=== PATIENT | female | born 1995 | race Caucasian/White ===

== ENCOUNTER 2017-05-17 05:15 | Inpatient (IN) | payer OTHER ==
[~2017-05-17] VITALS: Ht 162.6 cm; Wt 83.6 kg
[2017-05-17 05:34] VITALS: Ht 162.6 cm; Wt 83.6 kg
[2017-05-17 05:38] VITALS: BP 131/74; PULSE 72
[2017-05-17] MEDS ORDERED: METHYLERGONOVINE 0.2 MG INJ IM PRN ×2 (06:00→13:30)
[2017-05-17] MEDS ORDERED: CARBOPROST 250 MCG INJ IM PRN ×2 (06:00→13:30)
[2017-05-17] MEDS ORDERED: MISOPROSTOL 200 MCG TAB PR PRN ×2 (06:00→13:30)
[2017-05-17] MEDS ORDERED: OXYTOCIN 30 UNITS/LR 500 ML IV PRN ×2 (06:00→13:30)
[2017-05-17] MEDS ORDERED: CEFAZOLIN 2 GM/50 ML (PMX) 50 ML IVPB ONE (06:07)
[2017-05-17 06:08] LABS: BASOPHILS % 0.3 % (0.0-2.0); EOSINOPHILS # 0.1 10^3/ul (0.0-0.5); HEMATOCRIT 33.3 % (37.0-47.0); HEMOGLOBIN 11.1 g/dl (12.0-16.0); LYMPHOCYTES # 2.4 10^3/ul (0.8-2.9); LYMPHOCYTES % 34.8 % (15.0-51.0); MEAN CORPUSCULAR HEMOGLOBIN 25.3 pg (29.0-33.0); MEAN CORPUSCULAR HGB CONC 33.3 g/dl (32.0-37.0); MEAN PLATELET VOLUME 12.1 fl (7.4-10.4); MONOCYTE # 0.6 10^3/ul (0.3-0.9); MONOCYTES % 8.4 % (0.0-11.0); NEUTROPHIL # 3.7 10^3/ul (1.6-7.5); NEUTROPHILS % 54.9 % (39.0-77.0); PLATELET COUNT 282 10^3/UL (140-415); RED BLOOD COUNT 4.38 10^6/ul (4.20-5.40); RED CELL DISTRIBUTION WIDTH 14.5 % (11.5-14.5); WHITE BLOOD COUNT 6.8 10^3/ul (4.8-10.8)
[2017-05-17] MEDS: LACTATED RINGER'S 1,000 ML IV SCH ×2 (06:10→07:25)
[2017-05-17 06:38] LABS: INR 0.83; PROTIME 11.5 Sec (11.9-14.9); PT RATIO 0.9
[2017-05-17 06:39] LABS: PARTIAL THROMBOPLASTIN TIME 26.4 Sec (25.0-35.0)
[2017-05-17] MEDS ORDERED: OXYTOCIN 30 UNITS/LR 500 ML BAG IV ONE (07:00)
[2017-05-17 07:09] LABS: BARBITURATES Negative (NEGATIVE); BENZODIAZEPINES Negative (NEGATIVE); CANNABINOIDS Negative (NEGATIVE); COCAINE Negative (NEGATIVE); OPIATES Negative (NEGATIVE)
[2017-05-17] MEDS ORDERED: OXYTOCIN 10 UNIT INJ ONE (07:57)
[2017-05-17] MEDS ORDERED: PHENYLephrine (100 MCG/ML) 5ML SYG ONE ×3 (07:57→08:55)
[2017-05-17] MEDS ORDERED: ONDANSETRON 4 MG INJ ONE ×2 (07:57→08:45)
[2017-05-17] MEDS ORDERED: morphine SULFATE/PF (10 MG/10 ML) INJ ONE (07:57)
[2017-05-17] MEDS: CEFAZOLIN 2 GM/50 ML (PMX) 50 ML IV SCH ×2 (08:12→09:39)
[2017-05-17] MEDS ORDERED: METOCLOPRAMIDE 10 MG INJ ONE (08:38)
[2017-05-17] MEDS ORDERED: MIDAZOLAM 1 MG/ML 2 ML INJ ONE (08:45)
[2017-05-17] MEDS: OXYTOCIN 30 UNITS/LR 500 ML IV SCH ×2 (09:41→11:32)
--- NOTE | 2017-05-17 09:49 | HP ---
Date/Time of Note Date/Time of Note DATE: 05/17/17 TIME: 09:42 OB - History Hx of Present Free Text/Dictation 21 y.o primigravida with twin gestation at 37w for Primary section. 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 Blood Type: A+ Rubella: immune RPR/VDRL: Negative GBS Status: Unknown HBsAG: Negative OB Admission Exam Vital Signs Vital Signs Vital Signs Date Time Temp Pulse Resp B/P Pulse Ox O2 Delivery O2 Flow Rate FiO2 05/17/17 05:43 100 05/17/17 05:38 98.4 72 131/74 Room Air Physical Exam HEENT: WNL Heart: Rhythm Normal Lungs: Clear, Equal Abdomen: WNL Extremities: Normal Reflexes: Normal Cervical Dilatation: other Effacement: Other Station: Other Membranes: Intact Amniotic Fluid: Unevaluable Heart Rate: 140's Accelerations: Accelerations Present Decelerations: No Decelerations Varibility: Moderate Contractions on Admission: None Last 72 hours Lab Results CBC & BMP 05/17/17 05:50 OB Assessment/Plan Reason for admission: section Other Assessment: IUP 37w twin gestation Plan: Section PIERRE DYER MD May 17, 2017 09:48
[2017-05-17] MEDS ORDERED: ONDANSETRON 4 MG INJ IV PRN ×2 (10:00→13:30)
[2017-05-17] MEDS ORDERED: HYDROmorphONE 0.5 MG/0.5 ML SYG IV PRN ×2 (10:00)
[2017-05-17] MEDS ORDERED: NALOXONE (0.4 MG/ML) INJ IV PRN (10:00)
[2017-05-17] MEDS ORDERED: DIPHENHYDRAMINE 50 MG INJ IV PRN ×2 (10:00→13:30)
[2017-05-17] MEDS ORDERED: KETOROLAC 30 MG INJ IV PRN (10:00)
[2017-05-17] MEDS ORDERED: PREN-17 PO (11:12)
[2017-05-17 12:50] VITALS: BP 107/61; PULSE 57; RESP 18
[2017-05-17] MEDS ORDERED: OXYCODONE/ACETAMINOPHEN (5/325) TAB PO PRN (13:30)
[2017-05-17] MEDS ORDERED: LANOLIN 7 GM TUBE TOP PRN (13:30)
[2017-05-17] MEDS ORDERED: ZOLPIDEM 5 MG TAB PO PRN (13:30)
[2017-05-17 15:45] VITALS: BP 117/66; RESP 16
[2017-05-17] MEDS: CEFAZOLIN 2 GM/50 ML (PMX) 50 ML IVPB SCH ×2 (16:12→21:58)
[2017-05-17 19:30] VITALS: BP 127/76; PULSE 57; RESP 18
[2017-05-17] MEDS: SENNA/DOCUSATE NA (8.6MG/50MG) TAB PO SCH (21:38)
[2017-05-18 00:35] VITALS: BP 110/59; PULSE 69; RESP 18
[2017-05-18 03:55] VITALS: BP 107/56; PULSE 62; RESP 18
[2017-05-18] MEDS: CEFAZOLIN 2 GM/50 ML (PMX) 50 ML IVPB SCH ×3 (05:57→21:30)
--- NOTE | 2017-05-18 06:29 | OPR ---
DATE OF OPERATION: 05/17/2017 PREOPERATIVE DIAGNOSIS: at 37 weeks with a twin gestation, vertex-vertex. POSTOPERATIVE DIAGNOSIS: at 37 weeks with a twin gestation, vertex-vertex. PROCEDURE: Primary section, low transverse. ANESTHESIA: Spinal. ANESTHESIOLOGIST: Dr. Lees. SURGEON: Fei Gutierres MD SPACE AND MISSILE OPERATIONS SPACELIFT: ESTIMATED BLOOD LOSS: Approximately 600 mL. PROCEDURE: Under proper induction of spinal anesthesia, the patient was placed in the frog position . Johnson catheter was introduced into the bladder under sterile condition and repositioned to supine . Abdominal wall was prepped and draped in usual aseptic manner. A transverse incision was made ap proximately 2 fingers above the pubic rami. Incision was carried down through the subcutaneous tiss ue to the anterior rectus fascia, which was incised transversely in length of the incision. Fascial flap was created by blunt and sharp dissection of tendinous attachment, and 2 rectus muscles were s plit in midline and peritoneal cavity was entered. The low portion of the uterus was exposed. A tr ansverse incision was made above the uterovesical reflection. This incision was carried down to the amniotic membrane, which was ruptured, revealed clear amniotic fluid, and normal male was anjum rn from the occiput anterior position. Mouth and nose were cleaned. Mouth and nose were cleaned an d cord was delayed clamped, and handed to the respiratory care personnel for further care. Then, se cond sac was ruptured and same, and normal female infant was born from left occiput anterior positio n. Mouth and nose were cleaned, and cord was delayed clamped and cut and handed to the respiratory care personnel for further care. Cord blood was obtained from each cord and the placenta was remove d manually, which was sent to pathology. Uterus was exteriorized. Cavity was completely explored, and the uterine incision was closed using 0 chromic catgut in continuous manner and second layer als o using 0 chromic catgut in continuous manner including uterine serosa. No bleeder was noted. Abdo marizol cavity was irrigated. The uterus already relocated. There was a filmy adhesion from the omen ever on the posterior aspect of the uterus which was released, and a piece of Interceed was placed af ter adequate hemostasis was secured. Then Surgicel was laid on the uterine incision after check the incision, which was intact, and all the blood clots were removed and the irrigation was done. Spon ge count correct and parietal peritoneum was closed using 0 chromic catgut in continuous manner, mus sam closed with 0 chromic catgut in continuous manner. Fascia closed with #1 Vicryl in continuous m jaz in 2 segments. Subcutaneous tissue irrigated with water. This layer was approximated with a 2-0 plain gut, and the skin closed with a 3-0 Monocryl in subcuticular manner. Steri-Strip applied. Pressure dressing applied. Estimated blood loss approximately 600 mL. The patient withstood the procedure well and was sent to recovery room in stable condition. Dictated By: FEI BLACKBURN/MARIELA Conf#: [id number] DID#: [id number]
[2017-05-18 07:51] VITALS: BP 114/68; RESP 18
[2017-05-18 09:21] LABS: BASOPHILS % 0.2 % (0.0-2.0); EOSINOPHILS % 0.1 % (0.0-7.0); HEMATOCRIT 27.1 % (37.0-47.0); HEMOGLOBIN 8.7 g/dl (12.0-16.0); LYMPHOCYTES # 1.7 10^3/ul (0.8-2.9); MEAN CORPUSCULAR HEMOGLOBIN 24.9 pg (29.0-33.0); MEAN CORPUSCULAR HGB CONC 32.1 g/dl (32.0-37.0); MEAN CORPUSCULAR VOLUME 77.7 fl (82.0-101.0); MEAN PLATELET VOLUME 11.9 fl (7.4-10.4); MONOCYTE # 0.6 10^3/ul (0.3-0.9); MONOCYTES % 6.3 % (0.0-11.0); PLATELET COUNT 227 10^3/UL (140-415); RED BLOOD COUNT 3.49 10^6/ul (4.20-5.40); RED CELL DISTRIBUTION WIDTH 14.6 % (11.5-14.5); WHITE BLOOD COUNT 9.3 10^3/ul (4.8-10.8)
[2017-05-18] MEDS: SENNA/DOCUSATE NA (8.6MG/50MG) TAB PO SCH ×2 (09:35→21:30)
[2017-05-18] MEDS: OXYCODONE/ACETAMINOPHEN (5/325) TAB PO PRN (10:14)
--- NOTE | 2017-05-18 11:47 | PN ---
Date/Time of Note Date/Time of Note DATE: 05/18/17 TIME: 11:41 OB Subjective Subjective Subjective no c/o no flatus yet OB Objective Objective Objective vss a febrile abdomen soft wound dry lochia min ext neg OB Assessment/Plan Other Assessment: stable pod #1 Plan: Expectant Management Other plan: as ordered PIERRE DYER MD May 18, 2017 11:47
[2017-05-18] MEDS: IBUPROFEN 600 MG TAB PO SCH ×3 (12:27→23:32)
[2017-05-18 15:53] VITALS: RESP 16
[2017-05-18 16:00] VITALS: BP 104/66; RESP 18
[2017-05-18 20:29] VITALS: BP 119/82; PULSE 66; RESP 18
[2017-05-19 04:00] VITALS: BP 98/64; PULSE 67; RESP 18
[2017-05-19] MEDS: CEFAZOLIN 2 GM/50 ML (PMX) 50 ML IVPB SCH ×3 (05:33→21:38)
[2017-05-19] MEDS: IBUPROFEN 600 MG TAB PO SCH ×3 (05:33→17:38)
[2017-05-19 08:49] VITALS: BP 115/75; PULSE 59; RESP 18
[2017-05-19] MEDS: SENNA/DOCUSATE NA (8.6MG/50MG) TAB PO SCH ×2 (08:49→21:38)
[2017-05-19 16:20] VITALS: BP 109/72; PULSE 63; RESP 18
--- NOTE | 2017-05-19 20:56 | PN ---
Date/Time of Note Date/Time of Note DATE: 05/19/17 TIME: 20:53 OB Subjective Subjective Subjective no BM yet no c/o OB Objective Objective Objective vss afebrile abdomen soft wound dry lochia min calf neg for tenderness OB Assessment/Plan Other Assessment: post c/s#2 stable Other plan: d/s home in am PIERRE DYER MD May 19, 2017 20:56
[2017-05-19 21:00] VITALS: BP 123/83; PULSE 67; RESP 16
[2017-05-20] MEDS: IBUPROFEN 600 MG TAB PO SCH ×3 (00:13→12:36)
[2017-05-20 04:00] VITALS: BP 134/83; PULSE 54; RESP 19
[2017-05-20] MEDS: CEFAZOLIN 2 GM/50 ML (PMX) 50 ML IVPB SCH (06:19)
--- NOTE | 2017-05-20 07:29 | DS ---
Date/Time of Note Date/Time of Note DATE: 05/20/17 TIME: 07:28 Obstetrical Discharge Record Final Diagnosis Final Diagnosis: Term delivered Other Final Diagnosis twin gestation Section Section: Primary Complications Multiple Gestation Augmentation: No Induction: No Rupture of Membranes: No Condition on Discharge Physical Assessment Last Vitals: vss afebrile Voiding: Yes Bowel Movement: Yes Breast: Soft, non-tender Fundus: Firm Abdomen and Incision: abdomen soft wound dry Episiotomy: n/a Calf Tenderness: No Patient Condition: Stable PIERRE DYER MD May 20, 2017 07:29
--- NOTE | 2017-05-20 07:32 | PD.PPDC ---
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
[2017-05-20 08:00] VITALS: BP 136/82; PULSE 58; RESP 17
[2017-05-20] MEDS: SENNA/DOCUSATE NA (8.6MG/50MG) TAB PO SCH (08:52)
[2017-05-20] MEDS ORDERED: DIPHTH/TET/ACEL PERTUSS (ADULT) 0.5 ML VIAL IM* ONE (09:00)
[2017-05-20] MEDS: OXYCODONE/ACETAMINOPHEN (5/325) TAB PO PRN (11:16)
== END 2017-05-20 15:46 | disposition home or self-care (01) | DRG 766 ==
LOC: L-D 05:15 → PP1 12:42
PROVIDERS: ADMIT Obstetrics & Gynecology; ATTEND Obstetrics & Gynecology
PROC: 10D00Z1 Extraction of Products of Conception, Low, Open Approach (ICD-10-PCS; principal; 2017-05-17 07:30)
DX: O30.033 Twin pregnancy, monochorionic/diamniotic, third trimester (principal); Z37.2 Twins, both liveborn; O99.213 Obesity complicating pregnancy, third trimester; E66.9 Obesity, unspecified; Z68.31 Body mass index [BMI] 31.0-31.9, adult; Z3A.37 37 weeks gestation of pregnancy
CPT/HCPCS: 80307; 85025; 85610; 85730; 86592; 86850; 86900; 86901; 87340; 88307; 90715; 99464; J0690; J1885; J2250; J2274; J2370; J2405; J2590; J2765; J7120